=== PATIENT | male | born 2000 | race Caucasian/White ===

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

== ENCOUNTER → 2021-03-04 | Outpatient (CLI) | payer OTHER ==
[~2021-03-04] MED LIST changes: +METFORMIN HCL500 M3 PO; +Monodox100 MG PO
[2021-03-06 06:10] LABS: HIV SCREEN 4TH GENERATION WRFX Non Reactive (Non Reactive)
== END | disposition home or self-care (01) ==
LOC: LAB 18:49 → LAB SHORT 18:49
PROVIDERS: Nurse Practitioner Family
DX: Z11.59 Encounter for screening for other viral diseases (principal)
CPT/HCPCS: 86803; 87389

== ENCOUNTER 2021-04-16 19:24 | Emergency (ER) | payer OTHER ==
[~2021-04-16] VITALS: Ht 203.2 cm; Wt 165.6 kg
[2021-04-16] MEDS ORDERED: CYCL10 PO (20:12)
== END 2021-04-16 20:19 | disposition home or self-care (01) ==
LOC: ER 19:24
DX: S29.012A Strain of muscle and tendon of back wall of thorax, initial encounter (principal); Z88.0 Allergy status to penicillin; Z88.1 Allergy status to other antibiotic agents; Z91.030 Bee allergy status; X58.XXXA Exposure to other specified factors, initial encounter
CPT/HCPCS: 99283; A9270

== ENCOUNTER 2021-08-25 23:27 | Emergency (ER) | payer OTHER ==
[~2021-08-25] VITALS: Ht 203.2 cm; Wt 170.1 kg
[~2021-08-25 23:27] MED LIST changes: +CYCL10 PO
== END 2021-08-26 02:50 | disposition home or self-care (01) ==
LOC: ER 23:27
DX: R07.9 Chest pain, unspecified (principal); F41.9 Anxiety disorder, unspecified; I10 Essential (primary) hypertension; Z88.0 Allergy status to penicillin; Z88.1 Allergy status to other antibiotic agents; Z91.030 Bee allergy status; Z79.899 Other long term (current) drug therapy; Z79.84 Long term (current) use of oral hypoglycemic drugs
CPT/HCPCS: 36415; 84484; 93005; 93010; 99285-25; A9270

== ENCOUNTER 2021-08-26 15:25 | Emergency (ER) | payer OTHER ==
[~2021-08-26] VITALS: Ht 203.2 cm; Wt 170.1 kg
== END 2021-08-26 19:30 | disposition home or self-care (01) ==
LOC: ER 15:25
DX: F41.9 Anxiety disorder, unspecified (principal); R07.9 Chest pain, unspecified; I10 Essential (primary) hypertension; Z88.0 Allergy status to penicillin; Z88.1 Allergy status to other antibiotic agents; Z91.030 Bee allergy status; Z79.899 Other long term (current) drug therapy; Z79.84 Long term (current) use of oral hypoglycemic drugs
CPT/HCPCS: 71046; 99283-25

== ENCOUNTER → 2021-08-31 | Outpatient (CLI) | payer OTHER | LOC: LAB SHORT 08:03 → LAB 08:03 | DX: L91.8 Other hypertrophic disorders of the skin (principal); D22.5 Melanocytic nevi of trunk; Z88.0 Allergy status to penicillin; Z88.1 Allergy status to other antibiotic agents; Z91.038 Other insect allergy status | CPT/HCPCS: 88305 ==

== ENCOUNTER 2022-10-10 10:12 | Emergency (ER) | payer OTHER ==
[~2022-10-10] VITALS: Ht 203.2 cm; Wt 170.1 kg
[~2022-10-10 10:12] MED LIST changes: +Robaxin750 MG PO
[2022-10-10 11:28] LABS: Influenza A, PCR NEGATIVE (NEGATIVE); Influenza B, PCR NEGATIVE (NEGATIVE); Resp Syncytial Virus, PCR NEGATIVE (NEGATIVE); SARS-Cov-2 (COVID-19) PCR, MMC NEGATIVE (NEGATIVE)
[2022-10-10] MEDS ORDERED: CEFD300 PO (13:03)
== END 2022-10-10 13:25 | disposition home or self-care (01) ==
LOC: ER 10:12
PROVIDERS: Physician Assistant
DX: H66.92 Otitis media, unspecified, left ear (principal); R05.9 Cough, unspecified; R09.89 Other specified symptoms and signs involving the circulatory and respiratory systems; R73.03 Prediabetes; Z20.822 Contact with and (suspected) exposure to COVID-19; Z88.0 Allergy status to penicillin; Z91.038 Other insect allergy status; Z88.1 Allergy status to other antibiotic agents; Z79.899 Other long term (current) drug therapy
CPT/HCPCS: 0241U

== ENCOUNTER 2022-10-14 20:16 | Emergency (ER) | payer OTHER ==
[~2022-10-14] VITALS: Ht 203.2 cm; Wt 124.7 kg
[~2022-10-14 20:16] MED LIST changes: +CEFD300 PO
[2022-10-14] MEDS ORDERED: BENZ100A PO (23:34)
== END 2022-10-14 23:54 | disposition home or self-care (01) ==
LOC: ER 20:16
DX: J02.8 Acute pharyngitis due to other specified organisms (principal); H92.03 Otalgia, bilateral; Z88.0 Allergy status to penicillin; Z88.1 Allergy status to other antibiotic agents; Z91.038 Other insect allergy status; Z79.899 Other long term (current) drug therapy; R73.03 Prediabetes
CPT/HCPCS: A9270

== ENCOUNTER 2023-07-06 13:23 | Emergency (ER) | payer OTHER ==
[~2023-07-06] VITALS: Ht 203.2 cm; Wt 167.8 kg
[~2023-07-06 13:23] MED LIST changes: +BENZ100A PO; +PRED20 PO
[2023-07-06 14:04] VITALS: BP 183/91
== END 2023-07-06 14:08 | disposition home or self-care (01) ==
LOC: ER 13:23
DX: T23.121A Burn of first degree of single right finger (nail) except thumb, initial encounter (principal); R73.03 Prediabetes; X10.1XXA Contact with hot food, initial encounter; Z88.0 Allergy status to penicillin; Z88.1 Allergy status to other antibiotic agents; Z91.030 Bee allergy status
CPT/HCPCS: 99283

== ENCOUNTER 2024-05-15 02:35 | Emergency (ER) | payer OTHER ==
[~2024-05-15] VITALS: Ht 203.2 cm; Wt 136.1 kg
[~2024-05-15 02:35] MED LIST changes: +ALMACONE SUSPE355 ML PO; +FAMO20 PO; +Simvastatin20 MG PO
[2024-05-15 02:48] VITALS: BP 170/100
[2024-05-15 03:45] LABS: Influenza A, PCR NEGATIVE (NEGATIVE); Influenza B, PCR NEGATIVE (NEGATIVE); Resp Syncytial Virus, PCR NEGATIVE (NEGATIVE)
[2024-05-15 03:47] LABS: SARS-Cov-2 (COVID-19) PCR, MMC POSITIVE (NEGATIVE)
== END 2024-05-15 04:10 | disposition home or self-care (01) ==
LOC: ER 02:35
PROVIDERS: Emergency Medicine
DX: U07.1 COVID-19 (principal); Z79.899 Other long term (current) drug therapy; Z88.0 Allergy status to penicillin; Z88.1 Allergy status to other antibiotic agents; Z91.030 Bee allergy status
CPT/HCPCS: 0241U; 87081; 87430; 99284

== ENCOUNTER 2024-05-15 19:56 | Emergency (ER) | payer OTHER ==
[~2024-05-15] VITALS: Ht 203.2 cm; Wt 158.8 kg
[2024-05-15 20:08] VITALS: BP 137/92
== END 2024-05-15 20:29 | disposition home or self-care (01) ==
LOC: ER 19:56
DX: U07.1 COVID-19 (principal); Z79.899 Other long term (current) drug therapy; Z88.0 Allergy status to penicillin; Z88.1 Allergy status to other antibiotic agents; Z91.038 Other insect allergy status
CPT/HCPCS: 99282

== ENCOUNTER 2024-06-02 23:17 | Emergency (ER) | payer OTHER ==
[~2024-06-02] VITALS: Ht 203.2 cm; Wt 158.8 kg
[2024-06-03] MEDS ORDERED: Mag Hydrox/AL Hydrox/Simeth 30 ML UDC PO ONE (01:00)
[2024-06-03] MEDS ORDERED: Atropine/Scopalam/Hyoscam/PB 5 ML UDC PO ONE (01:00)
[2024-06-03] MEDS ORDERED: Lidocaine 2% Viscous Soln 15 ML UDC PO ONE (01:00)
[2024-06-03 01:35] LABS: Calcium, Ionized (POC) 1.14 mmol/L (1.10-1.46); Chloride (POC) 104 mmol/L (98-108); Creatinine (POC) 0.8 mg/dL (0.8-1.3); Glucose (ISTAT POC) 85 mg/dL (70-99); Hemoglobin (POC) 13.6 g/dL (13.5-17.5); Potassium (POC) 3.6 mmol/L (3.5-5.5); Sodium (POC) 139 mmol/L (135-148); Total CO2 (POC) 23 mmol/L (21-32)
[2024-06-03 01:40] VITALS: BP 164/99
[2024-06-03] MEDS ORDERED: CIME400 PO (01:40)
[2024-06-03] MEDS ORDERED: Simethicone 40 MG/0.6 ML 30ML BTL PO ONE (01:45)
== END 2024-06-03 01:51 | disposition home or self-care (01) ==
LOC: ER 23:17
PROVIDERS: Emergency Medicine
DX: K21.9 Gastro-esophageal reflux disease without esophagitis (principal); R07.9 Chest pain, unspecified; Z88.0 Allergy status to penicillin; Z88.1 Allergy status to other antibiotic agents; Z91.030 Bee allergy status; Z79.899 Other long term (current) drug therapy
CPT/HCPCS: 36415; 80047; 85014; 93005; 93010; 99283-25; A9270

== ENCOUNTER → 2024-09-30 | Outpatient (CLI) | payer OTHER ==
[~2024-09-30] MED LIST changes: +CIME400 PO
[2024-10-02 07:34] LABS: TISSUE TRANSGLUTAMINAS TTG,IGA <1.02 FLU (0.00-4.99)
== END ==
LOC: LAB SHORT 14:19 → LAB 14:19
PROVIDERS: Nurse Practitioner Family
DX: K90.0 Celiac disease (principal)
CPT/HCPCS: 86364

== ENCOUNTER → 2024-11-22 | Outpatient (CLI) | payer OTHER ==
[2024-11-22 17:15] LABS: Albumin/Globulin Ratio 1.4 (0.8-1.8); Bilirubin, Total 0.8 mg/dL (0.1-1.0); Bun/Creatinine Ratio 13.6 (12.0-20.0); Creatinine, Blood 0.74 mg/dL (0.60-1.20); Globulin, Blood 2.9 g/dL (2.2-4.0); Potassium, Blood 3.7 mmol/L (3.5-5.5); Total Protein, Blood 6.9 g/dL (6.4-8.2)
== END ==
LOC: LAB SHORT 13:49 → LAB 13:49
PROVIDERS: Nurse Practitioner Family
DX: R74.8 Abnormal levels of other serum enzymes (principal)
CPT/HCPCS: 80053